=== PATIENT | female | born 1985 | race Caucasian/White ===

== ENCOUNTER 2017-09-09 20:45 | Emergency (ER) | payer OTHER ==
[2017-09-09 20:51] VITALS: BP 144/93; PULSE 104; RESP 16; TEMP 98; O2SAT 99
--- NOTE | 2017-09-09 21:08 | ED PDOC ---
HPI: General Adult Time Seen by Provider: 09/09/17 20:53 Chief Complaint (Nursing): Upper Extremity Problem/Injury History Per: Patient Additional Complaint(s): Pt. states earlier today she slipped and fell going down the stairs landing on her R elbow. Denies numbness, tingling, head injury, chest pain, other injury. Contrary to triage note, pt. did not go to [facility] prior to coming here. Past Medical History Reviewed: Historical Data, Nursing Documentation, Vital Signs Vital Signs: Last Vital Signs Temp 98 F 09/09/17 20:48 Pulse 104 H 09/09/17 20:48 Resp 16 09/09/17 20:48 BP 144/93 H 09/09/17 20:48 Pulse Ox 99 09/09/17 21:08 - Medical History PMH: No Chronic Diseases - Family History Family History: States: No Known Family Hx - Allergies Allergies/Adverse Reactions: Allergies Allergy/AdvReac Type Severity Reaction Status Date / Time No Known Allergies Allergy Verified 09/09/17 20:48 Physical Exam - Physical Exam Appears: Positive for: Well, Non-toxic, No Acute Distress Skin: Positive for: Normal Color, Warm. Negative for: Rash Cardiovascular/Chest: Positive for: Chest Non Tender Pulses-Radial (L): 2+ Pulses-Radial (R): 2+ Extremity: Positive for: Normal ROM (R elbow with FROM actively and passively but with pain), Capillary Refill (< 2 seconds of R upper extremity), Other (R elbow with mild tenderness but no swelling or deformity; no shoulder, wrist, hand tenderness or swelling) - ECG O2 Sat by Pulse Oximetry: 99 - Radiology X-Ray: Interpreted by Me (R elbow x-ray) X-Ray Interpretation: No Acute Disease - Progress ED Course And Treament: Elbow x-rays ordered. Pt. offered pain meds but refused. Pt. provided with shoulder sling and holger wrap but prefers to not put it now and states she will put it on when she gets home. Disposition - Clinical Impression Clinical Impression: Elbow injury - Patient ED Disposition Is Patient to be Admitted: No - Disposition Referrals: Viky Lopez [Outside] Disposition: Routine/Home Disposition Time: 21:07 Condition: STABLE Additional Instructions: Follow up with PMD for further evaluation. Return to ED immediately if symptoms persist or worsen. Instructions: Elbow Sprain (DC) Forms: [employer] (Jamaican) Print Language: MARTIN[place]QU[place]IS
--- NOTE | 2017-09-10 08:35 | RAD ---
PROCEDURE: Radiographs of the right elbow. HISTORY: trauma COMPARISON: No prior. FINDINGS: BONES: Normal. No fracture. JOINTS: Normal. No osteoarthritis. SOFT TISSUES: Normal. JOINT EFFUSION: None. OTHER FINDINGS: None. IMPRESSION: Unremarkable radiographs of the right elbow.
== END 2017-09-09 21:22 | disposition home or self-care (01) ==
LOC: H.ER 20:45
DX: S59.901A Unspecified injury of right elbow, initial encounter (principal); W10.9XXA Fall (on) (from) unspecified stairs and steps, initial encounter; Y92.89 Other specified places as the place of occurrence of the external cause